=== PATIENT | female | born 2000 | race Caucasian/White ===

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

== ENCOUNTER → 2022-05-23 14:21 | Outpatient (CLI) | payer BC, SELFPAY ==
[2022-05-23 16:00] LABS: HCG,Quantitative 15306 mIU/ml (0-5.42)
== END ==
PROVIDERS: PCP Physician Assistant; Visit Provider Obstetrics & Gynecology
DX: N92.6 Irregular menstruation, unspecified (principal)
CPT/HCPCS: 36415; 84702

== ENCOUNTER → 2022-07-16 13:40 | Outpatient (CLI) | payer BC, SELFPAY ==
[2022-07-16 14:18] LABS: Basophils % 0.4 % (0.1-2.0); Eosinophils # 0.1 K/mm3 (0.0-0.4); Eosinophils % 1.2 % (0.1-12.0); Hematocrit 40.9 % (37.0-47.0); Hemoglobin 13.9 g/dL (12.2-16.2); Lymphocytes # 1.2 K/mm3 (0.7-4.5); Lymphocytes % 12.8 % (10-50); Mean Corpuscular HGB Conc 33.9 g/dL (31.8-35.4); Mean Corpuscular Hemoglobin 30.7 pg (27.0-31.2); Mean Corpuscular Volume 90.5 fl (81-99); Mean Platelet Volume 8.1 fl (7.4-10.4); Monocytes # 0.2 K/mm3 (0.1-1.0); Monocytes % 2.4 % (1.7-9.3); Neutrophils # 7.8 K/mm3 (1.8-7.8); Neutrophils % 83.2 % (37.0-80.0); Platelet Count 208 K/mm3 (142-424); Red Blood Count 4.52 M/mm3 (4.20-5.40); Red Cell Distribution Width 13.4 % (11.5-17.5); White Blood Count 9.3 K/mm3 (4.8-10.8)
[2022-07-18 08:23] LABS: HIV Screen 4th Generation wRfx Non Reactive (Non Reactive); Hepatitis B Surface Antigen Negative (Negative); Hepatitis C Antibody <0.1 s/co ratio (0.0-0.9); Rubella Antibodies, IgG 7.89 index (Immune >0.99)
[2022-07-18 11:12] LABS: Rapid Plasma Reagin Ab Titer Non Reactive (NonRea<1:1)
== END ==
PROVIDERS: PCP Physician Assistant; Visit Provider Nurse Practitioner Obstetrics & Gynecology
DX: Z34.90 Encounter for supervision of normal pregnancy, unspecified, unspecified trimester (principal)
CPT/HCPCS: 36415; 85025; 86592; 86703; 86762; 86850; 87340; 87380; G0432

== ENCOUNTER → 2022-08-29 12:39 | Outpatient (CLI) | payer BC, OTHER, SELFPAY ==
--- NOTE | 2022-08-29 12:39 | US_ITS ---
FINAL REPORT CLINICAL HISTORY: 20 week anatomy scan FINDINGS: There is a single live intrauterine gestation. Presentation is cephalic. The cervix is closed and measures 3.4 cm. Placenta is anterior and grade 1. Cardiac activity is confirmed at 144 bpm. The fetus is active. There is a questionable 2 vessel cord. 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 brain and ventricles are unremarkable. Chest and diaphragm are unremarkable. ABDOMEN: Both kidneys are unremarkable. Stomach is unremarkable. SPINE: No anomalies identified. Both arms and legs noted. AMNIOTIC FLUID: Appropriate amount. MEASUREMENTS: ULTRASOUND AGE: 19 weeks 2 days. GESTATION AGE: 19 weeks 6 days. ESTIMATED WEIGHT: 266 g GROWTH PERCENTILE: 9% BPD: 4.5 cm consistent with 19 weeks 5 days. OFD: 5.7 cm consistent with 19 weeks 6 days. HC: 16.2 cm consistent with 19 weeks 0 days. AC: 13.8 cm consistent with 19 weeks 2 days. FL: 2.8 cm consistent with 18 weeks 5 days. CEREBELLUM: 1.9 cm consistent with 19 weeks 5 days. HUMERUS: 2.9 cm consistent with 19 weeks 5 days. HC/AC: 1.17 CI: 80% FL/BPD: 62% FL/AC: 20% IMPRESSION: Single living IUP with an ultrasound age of 19 weeks 2 days. 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 Questionable 2 vessel cord. Recommend follow-up [employer] ultrasound. Reviewed, Interpreted and Dictated by Leo Hunter III, MD Transcribed by Shine Trujillo Authenticated and [facility]
== END ==
PROVIDERS: PCP Physician Assistant; Visit Provider Obstetrics & Gynecology
DX: Z34.90 Encounter for supervision of normal pregnancy, unspecified, unspecified trimester (principal); Z3A.20 20 weeks gestation of pregnancy
CPT/HCPCS: 76811

== ENCOUNTER 2022-10-20 10:53 | Outpatient (CLI) | payer OTHER, SELFPAY ==
[2022-10-20 11:05] VITALS: BMI 26.7
[2022-10-20 11:09] LABS: Microscopic, Urine URINE MICROSCOPIC (MICROSCOPIC)
[2022-10-20 11:14] VITALS: BP 119/72; PULSE 91; RESP 18; TEMP 36.8; O2SAT 97
[2022-10-20 11:18] LABS: Appearance,Urine CLEAR (Clear); Bilirubin,Urine Negative (Negative); Blood, Urine Negative (Negative); Color,Urine YELLOW (Yellow); Glucose,Urine (UA) Negative (Negative); Ketones,Urine Negative (Negative); Leukocyte Esterase,Urine Negative (Negative); Nitrate,Urine Negative (Negative); Protein,Urine Negative (Negative); Specific Gravity, Urine 1.025 (1.005-1.030); Urobilinogen,Urine 0.2 EU/dl (0.2)
[2022-10-20 11:19] VITALS: BMI 26.7
[2022-10-20 11:31] LABS: Amphetamine/Metha Screen,Urine Negative ng/ml (<1000)
[2022-10-20 11:32] LABS: Barbiturates Screen,Urine Negative ng/ml (<200); Benzodiazepines Screen,Urine Negative ng/ml (<200)
[2022-10-20 11:33] LABS: Cannabinoid Screen,Urine Negative ng/ml (<50); Cocaine Screen,Urine Negative ng/ml (<300)
[2022-10-20 11:34] LABS: Methadone Screen,Urine Negative ng/ml (<300)
[2022-10-20 11:35] LABS: Opiate Screen,Urine Negative ng/ml (<300); Phencyclidine Screen,Urine Negative ng/ml (<25)
[2022-10-20 11:42] LABS: Bacteria,Urine Trace /lpf
== END 2022-10-20 12:05 | disposition home or self-care (01) ==
LOC: OBOUT 10:53 → OB 10:54
PROVIDERS: PCP Physician Assistant; Visit Provider Obstetrics & Gynecology
DX: O26.892 Other specified pregnancy related conditions, second trimester (principal); Z3A.27 27 weeks gestation of pregnancy; R10.31 Right lower quadrant pain
CPT/HCPCS: 59025; 80305; 81001

== ENCOUNTER → 2022-10-25 09:11 | Outpatient (CLI) | payer OTHER, SELFPAY ==
[2022-10-25 09:48] LABS: Basophils # 0.1 K/mm3 (0-0.2); Basophils % 0.7 % (0.1-2.0); Eosinophils # 0.1 K/mm3 (0.0-0.4); Hematocrit 37.2 % (37.0-47.0); Hemoglobin 12.5 g/dL (12.2-16.2); Mean Corpuscular HGB Conc 33.7 g/dL (31.8-35.4); Mean Corpuscular Hemoglobin 31.5 pg (27.0-31.2); Mean Corpuscular Volume 93.4 fl (81-99); Mean Platelet Volume 7.9 fl (7.4-10.4); Monocytes # 0.5 K/mm3 (0.1-1.0); Monocytes % 5.3 % (1.7-9.3); Platelet Count 257 K/mm3 (142-424); Red Blood Count 3.98 M/mm3 (4.20-5.40); Red Cell Distribution Width 13.2 % (11.5-17.5); White Blood Count 9.7 K/mm3 (4.8-10.8)
[2022-10-25 10:01] LABS: Glucose,Fasting 81 mg/dl (74-100)
[2022-10-25 12:01] LABS: Glucose 1 Hour 69 mg/dL (74-100)
== END ==
PROVIDERS: PCP Physician Assistant; Visit Provider Obstetrics & Gynecology
DX: Z34.90 Encounter for supervision of normal pregnancy, unspecified, unspecified trimester (principal)
CPT/HCPCS: 36415; 82951; 85025

== ENCOUNTER 2022-11-07 14:27 | Outpatient (CLI) | payer OTHER, SELFPAY ==
[2022-11-07 14:37] VITALS: BMI 26.9
--- NOTE | 2022-11-07 14:37 | US_ITS ---
PROCEDURE INFORMATION: Exam: US Abdomen, Limited; Right Upper Quadrant Exam date and time: 11/07/2022 3:57 PM Age: 22 years old Clinical indication: Abdominal pain; ; Additional info: Ruq pain x3 weeks, R/O appendicitis TECHNIQUE: Imaging protocol: Real time ultrasound of the abdomen with image documentation. Limited exam focused on the right upper quadrant. COMPARISON: No relevant prior studies available. FINDINGS: Liver: Normal echotexture. No significant intrahepatic biliary ductal dilation. Gallbladder: The gallbladder is adequately distended with small amount of dependent echogenic sludge without evidence of gallstones. Normal wall thickness without pericholecystic fluid. Sonographic Hdez's sign is negative. Biliary ducts: Common duct: 3 mm. Pancreas: Pancreas is mostly obscured by bowel gas. Visualized pancreas is unremarkable. Right kidney: Measures 10.0 cm and demonstrates moderate hydronephrosis and proximal hydroureter. Otherwise normal echotexture, normal renal cortical thickness without hydronephrosis. Appendix: Appendix is NOT reliably visualized. No free fluid in the RIGHT lower quadrant. Other findings: No evidence of ascites. IMPRESSION: 1. Appendix is NOT reliably visualized and no obvious inflammatory changes in the RIGHT lower quadrant. 2. Moderate RIGHT hydronephrosis and proximal hydroureter. 3. Small amount of dependent sludge within the gallbladder without evidence of cholelithiasis or acute cholecystitis.
--- NOTE | 2022-11-07 14:37 | US_ITS ---
PROCEDURE INFORMATION: Exam: US After First Trimester, Transabdominal Exam date and time: 11/07/2022 3:25 PM Age: 22 years old Clinical indication: Pain indication: Pain in ruq x's 3 weeks; ; Additional info: Ruq pain x 3 weeks TECHNIQUE: Imaging protocol: Real-time transabdominal obstetrical ultrasound of the maternal pelvis and a second or third trimester with image documentation. COMPARISON: No relevant recent comparison exams. FINDINGS: Uterus: A single, live intrauterine gestation in cephalic/vertex presentation. Normal cardiac activity was seen at 160 bmp. . Cervix: Cervical length 2.7 cm . Amniotic Fluid: RODRIGO 11.7 cm, MVP 4.3 cm. . Placenta: The placenta is anterior, Grade 1-2, without evidence of previa or placental abruption. . measurements: BPD - 29 weeks and 6 days HC - 29 weeks and 3 days AC - 28 weeks and 6 days FL - 29 weeks and 1 day . Sonographic Gestational Age: Composite gestational age is 29 weeks and 3 days ??? 1-2 weeks with estimated date of confinement of 01/20/2023. Estimated Weight is 13 15 g corresponding to 13 percentile. . Survey: Visualized anatomy is unremarkable. . Umbilical artery S/D ratio: 3.6 . Adnexa: No adnexal mass or abnormality. No free fluid within the pelvis. IMPRESSION: Single VIABLE intrauterine gestation. PROCEDURE INFORMATION: Exam: US Biophysical Profile Without Non-Stress Test Exam date and time: 11/07/2022 3:25 PM Age: 22 years old Clinical indication: Pain indication: Pain in ruq x's 3 weeks; ; Additional info: Ruq pain x 3 weeks TECHNIQUE: Imaging protocol: US biophysical profile without non-stress testing. COMPARISON: US OB /MATERNAL DETAIL 08/29/2022 1:08 PM FINDINGS: Biophysical Profile: breathing movement (BPP): 2 body movement (BPP): 2 tone (BPP): 2 Amniotic fluid (BPP): 2 IMPRESSION: Biophysical Profile of 8.
[2022-11-07 15:05] VITALS: BP 127/93; PULSE 91; RESP 18; TEMP 36.6; O2SAT 100; BMI 26.9
[2022-11-07 16:12] LABS: Microscopic, Urine URINE MICROSCOPIC (MICROSCOPIC)
[2022-11-07 16:19] LABS: Appearance,Urine CLEAR (Clear); Bilirubin,Urine Negative (Negative); Blood, Urine Negative (Negative); Color,Urine YELLOW (Yellow); Glucose,Urine (UA) Negative (Negative); Ketones,Urine Negative (Negative); Leukocyte Esterase,Urine Negative (Negative); Nitrate,Urine Negative (Negative); Protein,Urine Negative (Negative); Urobilinogen,Urine 0.2 EU/dl (0.2)
[2022-11-07 16:32] LABS: Amphetamine/Metha Screen,Urine Negative ng/ml (<1000)
[2022-11-07 16:33] LABS: Barbiturates Screen,Urine Negative ng/ml (<200); Benzodiazepines Screen,Urine Negative ng/ml (<200)
[2022-11-07 16:34] LABS: Cannabinoid Screen,Urine Negative ng/ml (<50)
[2022-11-07 16:35] LABS: Cocaine Screen,Urine Negative ng/ml (<300); Methadone Screen,Urine Negative ng/ml (<300)
[2022-11-07 16:36] LABS: Opiate Screen,Urine Negative ng/ml (<300)
[2022-11-07 16:37] LABS: Amorphous Sediment,Urine 1+ /lpf; Bacteria,Urine 1+ /lpf; Phencyclidine Screen,Urine Negative ng/ml (<25)
[2022-11-07 17:07] LABS: Basophils # 0.1 K/mm3 (0-0.2); Basophils % 0.4 % (0.1-2.0); Eosinophils # 0.1 K/mm3 (0.0-0.4); Eosinophils % 0.4 % (0.1-12.0); Hematocrit 37.2 % (37.0-47.0); Hemoglobin 12.5 g/dL (12.2-16.2); Lymphocytes # 1.5 K/mm3 (0.7-4.5); Lymphocytes % 11.6 % (10-50); Mean Corpuscular HGB Conc 33.5 g/dL (31.8-35.4); Mean Corpuscular Hemoglobin 31.2 pg (27.0-31.2); Mean Platelet Volume 7.8 fl (7.4-10.4); Monocytes # 0.5 K/mm3 (0.1-1.0); Neutrophils # 10.4 K/mm3 (1.8-7.8); Neutrophils % 83.6 % (37.0-80.0); Platelet Count 251 K/mm3 (142-424); Red Cell Distribution Width 13.2 % (11.5-17.5); White Blood Count 12.5 K/mm3 (4.8-10.8)
[2022-11-07 17:13] LABS: Alanine Aminotransferase 11 U/L (12-78); Albumin Level 3.8 g/dl (3.5-5.0); Albumin/Globulin Ratio 1.4 (1.1-1.8); Alkaline Phosphatase 96 U/L (38-126); Amylase 71 U/L (30-110); Anion Gap 5.7 mEq/L (5-15); Aspartate Amino Transferase 21 U/L (14-36); Bilirubin,Total 0.2 mg/dl (0.2-1.3); Blood Urea Nitrogen 8 mg/dl (7-17); Calcium 8.6 mg/dl (8.4-10.2); Carbon Dioxide 25 mmol/L (22.0-30.0); Chloride 107 mmol/L (98-107); Creatinine Clearance Estimated 160 mL/min (50-200); Estimated Glomerular Filt Rate 125 ml/min (>60); GFR (African American) 151 ML/MIN (>60); Globulin 2.8 g/dL (1.3-3.2); Glucose 84 mg/dl (74-100); Potassium 3.7 mmoL/L (3.5-5.1); Sodium 134 mmol/L (136-145); Total Protein,Serum 6.6 g/dl (6.3-8.2)
[2022-11-07 17:23] LABS: Lipase 117 U/L (23-300)
== END 2022-11-07 18:31 | disposition home or self-care (01) ==
LOC: OBOUT 14:28 → OB 14:29
PROVIDERS: PCP Physician Assistant; Visit Provider Obstetrics & Gynecology
DX: O26.893 Other specified pregnancy related conditions, third trimester (principal); Z3A.29 29 weeks gestation of pregnancy; R10.11 Right upper quadrant pain
CPT/HCPCS: 36415; 59025; 76705; 76811; 76819; 76820; 80053; 80305; 81001; 82150; 83690; 85025; G0463

== ENCOUNTER 2023-10-09 18:46 | Outpatient (CLI) | payer OTHER, SELFPAY ==
[2023-10-09 17:50] LABS: Adenovirus,PCR Not Detected (NotDetected); Coronavirus 19, PCR Not Detected (NotDetected); Coronavirus 229E Not Detected (NotDetected); Coronavirus NL63 Not Detected (NotDetected); Coronavirus OC43 Not Detected (NotDetected); Coronovirus HKU1,PCR Not Detected (NotDetected); Human Metapneumovirus Not Detected (NotDetected); Influenza A, PCR Not Detected (NotDetected); Influenza AH1, 2009 Not Detected (NotDetected); Influenza AH1, PCR Not Detected (NotDetected); Influenza AH3,PCR Not Detected (NotDetected); Influenza B, PCR Not Detected (NotDetected); Parainfluenza 1, PCR Not Detected (NotDetected); Parainfluenza 2, PCR Not Detected (NotDetected); Parainfluenza 3, PCR Not Detected (NotDetected); Parainfluenza 4, PCR Not Detected (NotDetected); Respiratory Syncytial Virus Not Detected (NotDetected); Rhinovirus/Enterovirus Not Detected (NotDetected)
== END 2023-10-09 23:59 ==
LOC: LAB.DROPOF 18:46
PROVIDERS: PCP Nurse Practitioner Family; Visit Provider Nurse Practitioner Family
DX: J02.9 Acute pharyngitis, unspecified (principal); H65.191 Other acute nonsuppurative otitis media, right ear; R35.0 Frequency of micturition; N39.0 Urinary tract infection, site not specified
CPT/HCPCS: 87070; 87086; 87632; 87635

== ENCOUNTER 2024-03-01 18:18 | Emergency (ER) | payer OTHER, SELFPAY ==
[2024-03-01 18:30] VITALS: BP 123/73; PULSE 80; RESP 20; TEMP 37; O2SAT 98; BMI 26.5
--- NOTE | 2024-03-01 18:40 | ED_ITS ---
Discharge Plan Disposition Patient Disposition: Home, Self-Care Condition: Good Prescriptions Prescriptions: New azithromycin [Zithromax] 250 mg tablet 250 mg PO UD DOSE PK Qty: 6 0RF Rx Instructions: Take two (2) tablets today, then one (1) tablet days #2 thru #5 methylprednisolone 4 mg Tablets,Dose Pack 4 mg PO DIRECTED 6 Days Qty: 21 0RF Rx Instructions: Take 1 pack as directed for 6 days [id number] [Bromfed DM] 2-30-10 mg/5 mL Syrup 5 ml PO Q6H PRN (Reason: Cough) Qty: 240 0RF No Action sertraline 50 mg tablet 50 mg PO DAILY Rx Instructions: TAKE 1 TABLET BY MOUTH ONCE DAILY FOR DEPRESSION Referrals Follow up/Referrals: Susana Hyatt PA [Primary Care Provider] - See instructions Activity Restrictions/Add. Instructions Additional Instructions/Restrictions: Drink plenty of fluids. Take tylenol or ibuprofen for pain or fever. Take the medications as directed. Follow up with your regular doctor. GO TO THE ER FOR ANY WORSENING SYMPTOMS Clinical Impressions Clinical Impression: Sore throat, Pharyngitis Instructions Patient Instructions: Sore Throat, DI for Pharyngitis/Tonsillopharyngitis -- Adult, Methylprednisolone, Azithromycin Discharge ED Provider: Jonathan Stark [facility] General Stated complaint: sore throat,ears hurting,congestion Time Seen by Provider: 03/01/24 18:40 History of Present Illness Provider Complaint: She states that for the past 3 days she has had sore throat, worsening sinus congestion, and a nonproductive cough. She denies fever, but she has had chills. Related Data Home Medications Medication Instructions Recorded Confirmed sertraline 50 mg tablet 50 mg PO DAILY Depression 03/01/24 03/01/24 Previous Rx's Medication Instructions Recorded azithromycin 250 mg tablet 250 mg PO UD DOSE PK #6 tabs 03/01/24 (Zithromax) ihpnmhciovytsyk-inxmmumikngydtl-[id number] 5 ml PO Q6H PRN Cough #240 mL 03/01/24 2 mg-30 mg-10 mg/5 mL oral syrup (Bromfed DM) methylprednisolone 4 mg tablets in 4 mg PO DIRECTED 6 days #21 tabs 03/01/24 a dose pack Allergies Allergy/AdvReac Type Severity Reaction Status Date / Time amoxicillin Allergy Mild Verified 10/09/23 10:57 [facility] Disclaimer: The information contained in this section may have been updated after the patient was seen, as this information can be updated by other users. Medical History (Updated 03/01/24 @ 18:56 by Jonathan Stark APRN) UTI (urinary tract infection) Depression Epigastric direct abdominal tenderness Abdominal pain during , antepartum complicated by congenital heart disease Acne History of mononucleosis Anxiety Surgical History No history of previous surgery Family History Other No significant family history Social History Smoking Status: Former smoker tobacco type: cigarettes packs per day: 1 alcohol intake: never substance use type: denies use current occupational status: other Travel in the last 8 weeks: None household members: family housing: house ROS Obtained: Yes All systems reviewed & no additional complaints except as documented Constitutional Constitutional: Reports chills and Denies fever(s) Eyes Eyes: Denies eye discharge ENT Ears, Nose, Mouth, and Throat: Reports as per HPI Cardiovascular Cardiovascular: Denies chest pain Respiratory Respiratory: Denies shortness of breath, Denies chest congestion, Reports cough, Denies stridor and Denies wheezing Gastrointestinal Gastrointestingal: Reports nausea; Denies abdominal pain, constipation, cramping, diarrhea or vomiting Musculoskeletal Musculoskeletal: Denies arthralgias Integumentary/Breasts Skin/Breast: Denies rash Neurologic Neurologic: Denies paresthesias Allergic/Immunologic Allergic/Immunologic: Denies wheezing Physical Exam General General appearance: alert and in no apparent distress Head Head exam: atraumatic, normocephalic and normal inspection Eye Eye exam: Present normal appearance, PERRL and EOMI ENT ENT exam: Present mucous membranes moist and normal external ear exam Expanded ENT Exam TM/Canal exam: Bilateral TM: erythema and bulging Nose exam: Absent sinus tenderness Mouth exam: Present normal external inspection; Absent drooling Teeth exam: Present normal inspection Throat exam: Present tonsillar erythema, tonsillomegaly and tonsillar exudate Neck Neck exam: Present normal inspection, full ROM and trachea midline; Absent tenderness, meningismus or lymphadenopathy Chest Chest inspection: Present normal inspection and symmetric chest wall rise; Absent tenderness Respiratory Respiratory exam: Present normal lung sounds bilaterally; Absent respiratory distress, wheezes, stridor or accessory muscle use Cardiovascular Cardiovascular exam: Present regular rate and normal rhythm; Absent systolic murmur or diastolic murmur Abdominal Exam Abdominal exam: Present soft and normal bowel sounds; Absent distention, tenderness, guarding, rebound or rigidity Extremities Exam Extremities exam: Present normal inspection and normal capillary refill; Absent calf tenderness Back Exam Back exam: Present normal inspection and full ROM; Absent tenderness, CVA tenderness (R) or CVA tenderness (L) Neurological Exam Neurological exam: Present alert, oriented X3 and CN II-XII intact Psychiatric Psychiatric exam: Present normal affect and normal mood Skin Skin exam: Present warm, dry, intact and normal color Medical Decision Making Medical Records Medical records reviewed: No I reviewed the patient's medical records. [place] Inquiry Pt receiving controlled substance: No Lab Data Lab results reviewed: Yes I reviewed the patient's lab results.
[2024-03-01 18:42] LABS: UTC Strep Screen (Rapid) Negative (Negative)
[2024-03-01] MEDS: AZITHROMYCIN 250MG TABLET 500 MG PO (18:53)
[2024-03-01 18:56] VITALS: BP 123/73; PULSE 80; RESP 20; TEMP 37; O2SAT 98
--- NOTE | 2024-03-10 09:44 | PC.NURSE ---
Reviewed strep culture confirmation is negative. No further action is required.
== END 2024-03-01 19:00 | disposition home or self-care (01) ==
PROVIDERS: Emergency Provider Nurse Practitioner Family; PCP Physician Assistant
DX: J02.9 Acute pharyngitis, unspecified (principal); R05.9 Cough, unspecified; R09.81 Nasal congestion
CPT/HCPCS: 87880; 99204; 99212; G0463